=== PATIENT | male | born 1990 | race Caucasian/White ===

== ENCOUNTER 2017-01-10 10:54 | Inpatient (IN) | payer BC ==
[~2017-01-10] VITALS: Ht 175.3 cm; Wt 56.2 kg
[~2017-01-10 10:54] MED LIST: DICY10CA53 PO; PROM25TA10 PO
--- NOTE | 2017-01-10 11:21 | PHYS DOC ---
Past Medical History Past Medical History: Other Additional Past Medical Histor: ADHD Past Surgical History: Appendectomy Alcohol Use: None Drug Use: None Adult General Chief Complaint Chief Complaint: CHEST WALL PAIN HPI HPI Patient is a 26 year old male who presents with complaint of left-sided chest pain. Patient states his symptoms started approximately 1 hour ago. Patient admits to recent use of methamphetamine. Patient claims that he took approximately 15 times the regular amount of methamphetamine at approximately 0200. Patient has not taken this quantity of methamphetamine in the past but states that he does have history of regular methamphetamine use. Patient states that he started getting tightness along the left side of his chest which radiates towards his neck. Patient rates his discomfort as 5 out of 10. Patient has not taken any medications to help with symptoms. Patient denies any previous history of heart problems. Due to persistent symptoms, the patient was brought to emergency department accompanied by his mother. [] Review of Systems Review of Systems Constitutional: Denies fever or chills [] Eyes: Denies change in visual acuity, redness, or eye pain [] HENT: Denies nasal congestion or sore throat [] Respiratory: Denies cough or shortness of breath [] Cardiovascular: Chest pain [] GI: Denies abdominal pain, nausea, vomiting, bloody stools or diarrhea [] : Denies dysuria or hematuria [] Musculoskeletal: Denies back pain or joint pain [] Integument: Denies rash or skin lesions [] Neurologic: Denies headache, focal weakness or sensory changes [] Current Medications Current Medications Current Medications Medications (Trade) Dose Ordered Sig/Vkia Start Time Stop Time Status Last Admin Dose Admin Aspirin (Children'S Aspirin) 324 mg 1X ONCE 01/10/17 12:00 01/10/17 12:01 DC 01/10/17 11:46 324 MG Sodium Chloride 1,000 ml @ 1,000 mls/hr Q1H 01/10/17 12:00 01/10/17 12:59 DC 01/10/17 11:46 1,000 MLS/HR Allergies Allergies Allergies Coded Allergies Type Severity Reaction Last Updated Verified atomoxetine Allergy Intermediate Hives 06/13/16 Yes Physical Exam Physical Exam Constitutional: Alert, afebrile, appears in [id number] discomfort. [] HENT: Normocephalic, atraumatic, bilateral external ears normal, oropharynx moist, no oral exudates, nose normal. [] Eyes: PERRLA, EOMI, conjunctiva normal, no discharge. [] Neck: Normal range of motion, no tenderness, supple, no stridor. [] Cardiovascular:Heart rate regular rhythm, no murmur [] Lungs & Thorax: Bilateral breath sounds clear to auscultation [] Abdomen: Bowel sounds normal, soft, no tenderness, no masses, no pulsatile masses. [] Skin: Warm, dry, no erythema, no rash. [] Back: No tenderness, no CVA tenderness. [] Extremities: No tenderness, no cyanosis, no clubbing, ROM intact, no edema. [] Neurologic: Alert and oriented X 3, normal motor function, normal sensory function, no focal deficits noted. [] Current Patient Data Vital Signs Vital Signs Date Time Temp Pulse Resp B/P (MAP) Pulse Ox O2 Delivery O2 Flow Rate FiO2 01/10/17 12:45 64 14 114/76 (89) 98 01/10/17 11:00 98.8 Room Air 98.8 Lab Values Laboratory Tests Test 01/10/17 11:05 01/10/17 11:52 01/10/17 11:55 White Blood Count 8.3 x10^3/uL (4.0-11.0) Red Blood Count 5.31 x10^6/uL (4.30-5.70) Hemoglobin 15.8 g/dL (13.0-17.5) Hematocrit 45.4 % (39.0-53.0) Mean Corpuscular Volume 86 fL (79-100) Mean Corpuscular Hemoglobin 30 pg (25-35) Mean Corpuscular Hemoglobin Concent 35 g/dL (31-37) Red Cell Distribution Width 13.8 % (11.5-14.5) Platelet Count 341 x10^3/uL (140-400) Neutrophils (%) (Auto) 58 % (31-73) Lymphocytes (%) (Auto) 29 % (24-48) Monocytes (%) (Auto) 12 % (0-9) H Eosinophils (%) (Auto) 1 % (0-3) Basophils (%) (Auto) 1 % (0-3) Neutrophils # (Auto) 4.8 x10^3uL (1.8-7.7) Lymphocytes # (Auto) 2.4 x10^3/uL (1.0-4.8) Monocytes # (Auto) 1.0 x10^3/uL (0.0-1.1) Eosinophils # (Auto) 0.0 x10^3/uL (0.0-0.7) Basophils # (Auto) 0.1 x10^3/uL (0.0-0.2) D-Dimer (Blanche) < 0.27 ug/mlFEU Sodium Level 137 mmol/L (136-145) Potassium Level 3.4 mmol/L (3.5-5.1) L Chloride Level 101 mmol/L (98-107) Carbon Dioxide Level 26 mmol/L (21-32) Anion Gap 10 (6-14) 20 mmol/L (6-14) H Blood Urea Nitrogen 16 mg/dL (8-26) Creatinine 0.9 mg/dL (0.7-1.3) Estimated GFR (Cockcroft-Gault) 103.7 Glucose Level 90 mg/dL (70-99) 86 mg/dL (70-99) Calcium Level 9.7 mg/dL (8.5-10.1) Magnesium Level 2.1 mg/dL (1.8-2.4) Total Bilirubin 1.8 mg/dL (0.2-1.0) H Direct Bilirubin 0.3 mg/dL (0.0-0.2) H Aspartate Amino Transferase (AST) 14 U/L (15-37) L Alanine Aminotransferase (ALT) 19 U/L (16-63) Alkaline Phosphatase 55 U/L (46-116) Creatine Kinase 126 U/L (39-308) Creatine Kinase MB (Mass) < 0.5 ng/mL (0.0-3.6) Creatine Kinase MB Relative Index 0.4 % (0-4) Troponin I Quantitative < 0.017 ng/mL (0.000-0.055) ZA-Ebc-G-Type Natriuretic Peptide 9 pg/mL (0-124) Total Protein 7.7 g/dL (6.4-8.2) Albumin 4.2 g/dL (3.4-5.0) POC Troponin I 0.01 ng/ml (<0.08) POC Hemoglobin 15.6 g/dL (14-18) POC Hematocrit 46 % (37-52) POC Sodium 138 mmol/L (135-145) POC Potassium 3.5 mmol/L (3.5-5.0) POC Chloride 100 mmol/L (98-110) POC Total CO2 22 mmol/L (23-32) L POC Blood Urea Nitrogen 15 mg/dL (8-26) POC Creatinine 0.8 mg/dL (0.5-1.4) POC Ionized Calcium (Edward) 1.16 mmol/L (1.13-1.32) Laboratory Tests 01/10/17 11:05 Laboratory Tests 01/10/17 11:05 01/10/17 11:55 EKG EKG Interpreted by me: Heart rate 67, sinus rhythm, normal intervals, normal axis, ST elevations in the inferior leads and in V3 through V6, no reciprocal changes [] Radiology/Procedures Radiology/Procedures [facility] [address] [place] [address] IMAGING REPORT Signed PATIENT: LOVE BENITEZ ACCOUNT: [id number] : 1990 LOCATION: ER AGE: 26 SEX: M EXAM STATUS: REG ER ORD. PHYSICIAN: DIAZ DAVIES MD REASON: chest pain PROCEDURE: PORTABLE CHEST 1V EXAM: CHEST 1 VIEW History: Chest pain COMPARISON: None available. TECHNIQUE: Single portable radiograph of the chest FINDINGS: The cardiac silhouette is unremarkable. The lungs are clear bilaterally. The costophrenic sulci are clear and well demarcated. IMPRESSION: No radiographic evidence of an acute cardiopulmonary process. DICTATED and SIGNED BY: KHOI CAMPBELL MD DATE: 01/10/171212 CC: MILDRED HERNANDEZ; DIAZ DAVIES MD ~ [] Course & Med Decision Making Course & Med Decision Making Pertinent Labs and Imaging studies reviewed. (See chart for details) Patient had an abnormal EKG with elevations in the inferior leads. This was thought possibly due to a J-point elevation, however emergent cardiology consult was obtained. Patient was evaluated in the emergency department by Dr. Jama who reviewed the patient's EKG and examine the patient. After evaluation, we agreed that the patient was not displaying any findings consistent with acute STEMI. Patient's troponin was negative. Due to abnormal EKG and persistence of chest pain symptoms however the patient will need admission to the hospital to rule out acute myocardial infarction. Spoke with patient and patient's mother regarding plan of care and they're in agreement at this time. Dragon Disclaimer Dragon Disclaimer This electronic medical record was generated, in whole or in part, using a voice recognition dictation system. Departure Departure Impression: Primary Impression: Chest pain Additional Impression: Substance abuse Disposition: 09 ADMITTED INPATIENT Admitting Physician: Yolanda Chahal Condition: STABLE Referrals: NO PCP (PCP) Problem Qualifiers Primary Impression: Chest pain Chest pain type: unspecified Qualified Codes: R07.9 - Chest pain, unspecified DIAZ DAVIES MD January 10, 2017 11:21
[2017-01-10 11:50] LABS: BASO # 0.1 x10^3/uL (0.0-0.2); BASO % 1 % (0-3); EOS % 1 % (0-3); HEMATOCRIT 45.4 % (39.0-53.0); HEMOGLOBIN 15.8 g/dL (13.0-17.5); LYMPH # 2.4 x10^3/uL (1.0-4.8); LYMPH % 29 % (24-48); MEAN CORPUSCULAR HEMOGLOBIN 30 pg (25-35); MEAN CORPUSCULAR HGB CONC 35 g/dL (31-37); MEAN CORPUSCULAR VOLUME 86 fL (79-100); MONO % 12 % (0-9); NEUT % 58 % (31-73); PLATELET COUNT 341 x10^3/uL (140-400); RED BLOOD COUNT 5.31 x10^6/uL (4.30-5.70); RED CELL DISTRIBUTION WIDTH 13.8 % (11.5-14.5); WHITE BLOOD COUNT 8.3 x10^3/uL (4.0-11.0)
[2017-01-10 11:59] LABS: CALCIUM 9.7 mg/dL (8.5-10.1); CREATININE 0.9 mg/dL (0.7-1.3); GFR 103.7; POTASSIUM 3.4 mmol/L (3.5-5.1)
[2017-01-10 11:59] LABS: POTASSIUM ISTAT 3.5 mmol/L (3.5-5.0)
[2017-01-10] MEDS ORDERED: IV NORMAL SALINE 1000ML BAG 1,000 ML IV SCH (12:00)
[2017-01-10] MEDS ORDERED: ASPIRIN CHEWABLE 81 MG TABLET. PO ONE (12:00)
[2017-01-10 12:05] LABS: ALBUMIN 4.2 g/dL (3.4-5.0); DIRECT BILIRUBIN 0.3 mg/dL (0.0-0.2); MAGNESIUM 2.1 mg/dL (1.8-2.4); TOTAL BILIRUBIN 1.8 mg/dL (0.2-1.0); TOTAL PROTEIN 7.7 g/dL (6.4-8.2)
[2017-01-10 12:15] LABS: CKMB MASS < 0.5 ng/mL (0.0-3.6); CREATINE KINASE 126 U/L (39-308)
--- NOTE | 2017-01-10 12:17 | RAD ---
EXAM: CHEST 1 VIEW History: Chest pain COMPARISON: None available. TECHNIQUE: Single portable radiograph of the chest FINDINGS: The cardiac silhouette is unremarkable. The lungs are clear bilaterally. The costophrenic sulci are clear and well demarcated. IMPRESSION: No radiographic evidence of an acute cardiopulmonary process.
--- NOTE | 2017-01-10 12:56 | CONS ---
DATE OF CONSULTATION: 01/10/2017 REASON FOR CONSULTATION: Chest pain. HISTORY OF PRESENT ILLNESS: The patient is a 26-year-old young man who presents to the hospital in the setting of chest pain. Unfortunately, he had massive amounts of methamphetamines prior to his presentation and earlier this morning had persistent symptoms and therefore presented to the ER. At this time, he notes a pressure-like sensation across his left chest. He denies any trauma. He denies any prior cardiovascular issues. He has never had any prior heart failure or palpitations from his recollection. He denies any syncope. He denies any cocaine use. He frequently smokes marijuana. At this present time, after admission to the ER, he was noted to have stable vital signs and his laboratory studies are currently pending. PAST MEDICAL HISTORY: Polysubstance abuse. FAMILY HISTORY: No significant sudden cardiac or early atherosclerotic coronary artery disease. SOCIAL HISTORY: The patient is currently unemployed. He occasionally drinks. He does not smoke cigarettes. He does use multiple drugs including methamphetamines and marijuana. ALLERGIES: STRATTERA. REVIEW OF SYSTEMS: Negative for 10 out of 14 systems reviewed, unless otherwise mentioned above in HPI. PHYSICAL EXAMINATION: VITAL SIGNS: Afebrile, 98.8, 70, 13, 118/72, pulse ox 100% on room air. GENERAL: He is alert and oriented in mild distress from chest discomfort. HEAD AND NECK: Unremarkable. HEART: Regular rate and rhythm without any murmurs, rubs, or gallops. LUNGS: Clear to auscultation bilaterally. ABDOMEN: Soft, nontender, nondistended. EXTREMITIES: No clubbing, cyanosis or edema. NEUROLOGIC: No focal deficits. MUSCULOSKELETAL: No trauma. PSYCHIATRIC: Normal mood and affect, but the patient does appear to be minimally anxious related to his chest discomfort. DIAGNOSTIC STUDIES: As noted, are currently pending including the full laboratory panels and cardiac enzymes. EKG suggestive of minimal 1-mm ST elevation in the inferior leads without any significant reciprocal changes. Repeat EKG approximately 30 minutes later reveals stable ST changes without any significant worsening. IMPRESSION: Chest pain, likely secondary to coronary artery spasm in the setting of methamphetamine abuse. RECOMMENDATIONS: 1. At this time, consider low dose nitroglycerin for possible spasm. 2. Depending on the patient's cardiac biomarkers and symptoms, we could consider cardiac catheterization if necessary, but at this present time, would favor treatment with anxiolytics and nitrates as tolerated. 3. Serial EKG and enzymes. Thank you for this consultation. SCOTT IYER MD DR: SY/alexis JOB#: [id number] / [id number]
--- NOTE | 2017-01-10 12:57 | EKG ---
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
[2017-01-10 13:14] LABS: BARBITURATES NEG (NEG); BENZODIAZEPINES NEG (NEG); CANNABINOIDS NEG (NEG); COCAINE NEG (NEG); METHADONE NEG (NEG); OPIATES POS (NEG); PHENCYCLIDINE NEG (NEG)
[2017-01-10 13:25] LABS: BILIRUBIN,URINE NEGATIVE (NEG); GLUCOSE,URINE NEGATIVE (NEG); NITRITE,URINE NEGATIVE (NEG); PROTEIN,URINE NEGATIVE (NEG-TRACE)
[2017-01-10 13:26] LABS: BACTERIA,URINE 0 /HPF (0-FEW); RBC,URINE 0 /HPF (0-2)
[2017-01-10] MEDS ORDERED: ONDANSETRON PF 4 MG/2 ML VIAL. IV PRN (13:30)
[2017-01-10] MEDS ORDERED: ACETAMINOPHEN 325 MG TABLET. PO PRN (13:30)
[2017-01-10 13:31] VITALS: BP 112/82
[2017-01-10] MEDS ORDERED: PROMETHAZINE 12.5 MG TABLET. PO PRN (14:00)
[2017-01-10] MEDS ORDERED: NITROGLYCERIN SUBLINGUAL 0.4 MG BOTTLE OF 25. SL PRN (14:45)
[2017-01-10] MEDS ORDERED: MORPHINE SULFATE 2 MG/ML DISP.SYRIN. IV PRN (14:45)
[2017-01-10 15:00] VITALS: BP 120/72
--- NOTE | 2017-01-10 15:16 | HP ---
ADMIT DATE: 01/10/2017 CHIEF COMPLAINT: Chest pain. HISTORY OF PRESENT ILLNESS: The patient is a pleasant 26-year-old male, who has been abusing methamphetamine. He last used last night. This morning has got chest pain, we did some EKGs showing some ST depression and elevation in the inferior leads. I discussed the case with the ER physician. We are going to admit the patient and consult Cardiology. PAST MEDICAL HISTORY: Drug abuse, appendectomy and ADHD. ALLERGIES: ATOMOXETINE. FAMILY HISTORY: Diabetes. SOCIAL HISTORY: Does not drink or smoke. He does do methamphetamine. 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 MEDICATIONS: Reviewed, please refer to the MRAD. REVIEW OF SYSTEMS: GENERAL: No history of weight change, weakness or fevers. SKIN: No bruising, hair changes or rashes. EYES: No blurred, double or loss of vision. NOSE AND THROAT: No history of nosebleeds, hoarseness or sore throat. HEART: He complains of frequency chest pain. LUNGS: Denies cough, hemoptysis, wheezing or shortness of breath. GASTROINTESTINAL: Denies changes in appetite, nausea, vomiting, diarrhea or constipation. GENITOURINARY: No history of frequency, urgency, hesitancy or nocturia. NEUROLOGIC: He complains of weakness. PSYCHIATRIC: No history of panic, anxiety or depression. ENDOCRINE: No history of heat or cold intolerance, polyuria or polydipsia. EXTREMITIES: Denies muscle weakness, joint pain, pain on walking or stiffness. PHYSICAL EXAMINATION: VITAL SIGNS: Temperature afebrile, pulse 67, respirations 20, blood pressure 125/92. O2 sat 99%. GENERAL: He is alert, cooperative. His mother is present. HEART: Normal S1, S2. LUNGS: Clear. ABDOMEN: Soft, positive bowel sounds. EXTREMITIES: No edema. SKIN: He has got multiple tattoos. ENDOCRINE: No thyromegaly. LYMPHATICS: No cervical nodes. HEMATOPOIETIC: No bruising. ASSESSMENT AND PLAN: Chest pain secondary to methamphetamine abuse. The patient will be admitted on telemetry unit. We will consult Cardiology, serial enzymes, serial EKGs. ____ the patient to stop doing drugs. JURGEN WALKER DO DR: SANJUANITA/alexis JOB#: [id number] / [id number]
[2017-01-10] MEDS: IV NORMAL SALINE 1000ML BAG 1,000 ML IV SCH ×2 (15:20→23:33)
[2017-01-10] MEDS ORDERED: FLUO20CA16 PO (16:59)
[2017-01-10] MEDS ORDERED: VALA500T5 PO (16:59)
[2017-01-10] MEDS ORDERED: LISD20CA3 PO (16:59)
[2017-01-10] MEDS: DICYCLOMINE HCL 10 MG CAPSULE PO SCH ×2 (17:00→20:17)
--- NOTE | 2017-01-10 18:09 | ACF ---
Admission Forms Criteria TELEMETRY CARE Telemetry Admission Guidelines (Place 'X' for any and all applicable criteria): Admission to telemetry [A] may be indicated for ANY ONE of the following(1)(2)(3 )(4)(5): [X]I. Cardiac disease, including ANY ONE of the following (9)(10)(11)(12)(13 ): [ ]a) Postacute NC [ ]b) Low-risk patients with ST-segment elevation NC who have undergone successful percutaneous coronary intervention [ ]c) Unstable angina [X]d) Suspected NC (until it is ruled out) [ ]e) Post cardiac surgery (first 48 to 72 hours unless complications occur) [ ]f) Acute arrhythmias (including significant tachycardia or bradycardia) [B] [ ]g) Firing of an implantable cardioverter defibrillator [C] [ ]h) Suspected pacemaker or implantable cardioverter defibrillator malfunction (10) [ ]i) New administration or adjustment of an antiarrhythmic drug [D ] [ ]j) Child admitted for acute congestive heart failure [ ]j) Long QT syndrome [ ]k) Advanced heart block (eg, second-degree Mobitz type II, third- degree heart block) [ ]l) Acute myocarditis or pericarditis [ ]m) Short-term (ambulatory or inpatient) monitoring after a cardiac procedure as indicated by ANY ONE of the following [E]: [ ]i) Electrophysiologic studies [ ]ii) Percutaneous coronary intervention with stent placement [ ]iii) Pacemaker placement with cardiac conduction defect [ ]iv) Implantable cardiac defibrillator placement [ ]II. Drug overdose or poisoning with substance that causes arrhythmias or QT prolongation (eg, phenothiazines, sympathomimetic agents, cyclic antidepressants, digitalis, antiarrhythmic drugs)(15) [ ]III. Short-term (ambulatory or inpatient) monitoring after therapeutic or diagnostic procedure requiring conscious sedation or anesthesia (eg, endoscopy, elective cardioversion) [ ]IV. Acute cerebrovascular even[F](18) [ ]V. Massive blood transfusion (eg, at least 10 units of packed red blood cells in 24 hours) [ ]. Variceal bleeding after endoscopy, sclerotherapy, or IV vasopressin [ ]VII. Uncorrected electrolyte abnormalities associated with an increased risk of dangerous arrhythmia [G]; examples include [ ]a) Hyperkalemia with attributable ECG changes [ ]b) Potassium greater than 6.5 mmol/L (mEq/L) in a patient without history of chronic renal disease [ ]c) Prolonged QT attributed to hypokalemia, hypomagnesemia, or hypocalcemia [ ]VIII.Unexplained syncope or other neurologic event suspected of being due to arrhythmia due to a finding that increases risk; examples include(19)(20)(21): [ ]a) High-risk ECG findings (eg, bifascicular block, bradycardia, abnormal QT interval, ventricular pre- excitation) [ ]b) History of previous syncope due to arrhythmia [ ]c) Abnormal ventricular function (eg, reduced ejection fraction ) [ ]d) Exertional or supine syncope [ ]e) Concerning syncope characteristics (eg, sudden loss of consciousness without prodrome) [ ]f) Family history of sudden [ ]g) Use of arrhythmogenic medication [ ]h) Suspected cardiac ischemia [ ]i) Known channelopathy (eg, long QT syndrome, Brugada syndrome, or catecholaminergic paroxysmal ventricular tachycardia) [ ]j) Known structural heart disease (eg, hypertrophic cardiomyopathy , severe valvular disease) [ ]k) Palpitations preceding syncope The original [employer] content created by [employer] has been revised. The portions of the content which have been revised are identified through the use of italic text or in bold, and [facility] has neither reviewed nor approved the modified material. All other unmodified content is copyright [employer]. Please see references footnoted in the original [employer] edition 2016 Admission Criteria Met?: Yes ELBA HERNANDEZ January 10, 2017 18:09
[2017-01-10 19:00] VITALS: BP 91/54
[2017-01-10 23:00] VITALS: BP 100/56
[2017-01-11 01:37] LABS: BASO % 1 % (0-3); EOS % 1 % (0-3); HEMATOCRIT 38.7 % (39.0-53.0); HEMOGLOBIN 13.4 g/dL (13.0-17.5); LYMPH # 2.4 x10^3/uL (1.0-4.8); LYMPH % 40 % (24-48); MEAN CORPUSCULAR HEMOGLOBIN 30 pg (25-35); MEAN CORPUSCULAR HGB CONC 35 g/dL (31-37); MEAN CORPUSCULAR VOLUME 86 fL (79-100); MONO % 12 % (0-9); NEUT % 46 % (31-73); PLATELET COUNT 245 x10^3/uL (140-400); RED BLOOD COUNT 4.52 x10^6/uL (4.30-5.70); RED CELL DISTRIBUTION WIDTH 13.7 % (11.5-14.5)
[2017-01-11] MEDS ORDERED: NICOTINE 21MG PATCH. TD PRN (02:00)
[2017-01-11 03:00] VITALS: BP 91/45
[2017-01-11 03:02] LABS: CALCIUM 8.6 mg/dL (8.5-10.1); CREATININE 0.9 mg/dL (0.7-1.3); GFR 103.7; POTASSIUM 3.6 mmol/L (3.5-5.1)
--- NOTE | 2017-01-11 06:41 | EKG ---
[facility] [address] [place] [address] Test Date: 2017-01-10 Test Time: 11:46:08 Pat Name: LOVE BENITEZ Department: Room: 565 1 Gender: M Vp Project: : 1990 Requested By: JURGEN WALKER Order Number: [id number] Reading MD: Armand Jama Measurements Intervals [place] Rate: 69 P: 56 [place]: 138 QRS: 86 QRSD: 82 T: 64 QT: 396 QTc: 426 Interpretive Statements SINUS RHYTHM NON-SPECIFIC ST/T CHANGES Electronically Signed On 01-12-2017 10:35:00 CDT by Armand Jama
[2017-01-11 07:00] VITALS: BP 103/55
[2017-01-11] MEDS: IV NORMAL SALINE 1000ML BAG 1,000 ML IV SCH (08:03)
[2017-01-11] MEDS: DICYCLOMINE HCL 10 MG CAPSULE PO SCH ×2 (08:06→09:32)
[2017-01-11] MEDS ORDERED: NITR0.4T6 SL (10:38)
[2017-01-11] MEDS ORDERED: ALPR0.5T PO (10:38)
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
== END 2017-01-11 11:35 | disposition home or self-care (01) | DRG 313 ==
LOC: ER 12:17 → 5 SOUTH 12:46
PROVIDERS: ADMIT Internal Medicine; ATTEND Internal Medicine
DX: R07.89 Other chest pain (principal); F12.90 Cannabis use, unspecified, uncomplicated; F15.10 Other stimulant abuse, uncomplicated; F90.9 Attention-deficit hyperactivity disorder, unspecified type; Z83.3 Family history of diabetes mellitus; Z90.49 Acquired absence of other specified parts of digestive tract; Z88.8 Allergy status to other drugs, medicaments and biological substances; F41.9 Anxiety disorder, unspecified; Z71.89 Other specified counseling; F19.10 Other psychoactive substance abuse, uncomplicated
CPT/HCPCS: 36415; 71010; 80047; 80048; 80076; 81001; 82553; 83735; 83880; 84484; 85027; 85379; 87086; 93005; G0481; J2060; J7030; 99285-25